=== PATIENT | female | born 1995 | race Asian ===

== ENCOUNTER 2023-12-25 05:43 | Emergency (ER) | payer OTHER, SELFPAY ==
--- NOTE | 2023-12-25 05:48 | ED_ITS ---
HPI - SOB/Dyspnea General Chief Complaint: Upper Respiratory Symptoms Stated Complaint: Dyspnea, SOB Time Seen by Provider: 12/25/23 05:46 Source: patient and RN notes reviewed Mode of arrival: Ambulatory Limitations: no limitations History of Present Illness HPI Narrative: This is a 28-year-old female with no reported medical issues but states she feels short of breath for the past day. She has had some upper respiratory congestion starting at that time, hoarseness, she feels tight in her chest. No nausea or vomiting, no fevers. She has had a cough little bit of clear yellow sputum. No diarrhea constipation, no urinary symptoms. Patient states she is otherwise healthy. She did receive albuterol a couple years ago but does not have a known asthma history. She was not using it regularly throughout her life. Patient states no daily prescriptions. Denies any prior surgeries. Denies any drug allergies. No regular tobacco use, no regular alcohol use, no recreational drugs. Related Data Previous Rx's Medication Instructions Recorded albuterol sulfate 90 mcg/actuation 2 puff inhalation Q4-6H PRN 12/25/23 aerosol inhaler shortness of breath or wheezing #6.7 grams Review of Systems Review of Systems ROS Unobtainable: All systems reviewed & are unremarkable except as noted in HPI and below Patient History Social History Smoking Status: Never smoker Exam Narrative Exam Narrative: GEN: well nourished, well appearing female, alert and oriented x [default value], patient appears to be in mild distress. HEENT: Atraumatic, pupils are equal round reactive to light, extraocular movements are intact, nares are clear, there is no conjunctival pallor. Throat is clear without any exudates, erythema, tonsillar enlargement or uvular deviation, patient is mildly hoarse, she was nasal congestion. HEART: Regular rate and rhythm without murmur, clicks, rubs. LUNGS:Lungs clear to auscultation, no wheezes, rales, crackles, chest moves symmetrically, no tachypnea accessory muscle use. Patient ambulates from triage to the room without any issue. ABD:bowel sounds normal, soft, non-tender, no guarding, rebound, rigidity, no masses noted, no hepatosplenomegaly :No CVA tenderness MSCL: Non-tender, no muscle atrophy, muscles strength 5/5 upper and lower extremities, full range of motion, normal gait NEURO:CN 2-12 intact, sensation normal Initial Vital Signs Initial Vital Signs: Vital Signs Temperature 98.6 F 12/25/23 06:05 Pulse Rate 104 H 12/25/23 06:05 Respiratory Rate 16 12/25/23 06:05 Blood Pressure 136/80 12/25/23 06:05 Pulse Oximetry 98 12/25/23 06:05 Oxygen Delivery Method Room Air 12/25/23 06:05 Course Orders Ordered: Discontinued Medications Dexamethasone (Dexamethasone 10 Mg/Ml Vial) 10 mg PO NOW ONE Stop: 12/25/23 06:30 Last Admin: 12/25/23 06:51 Dose: 10 mg Documented By: ARIELLA Vital Signs Vital signs: Vital Signs - 8 hr 12/25/23 06:05 Temperature 98.6 F Pulse Rate 104 H Respiratory Rate 16 Blood Pressure 136/80 Pulse Oximetry 98 Oxygen Delivery Method Room Air MDM - SOB/Dyspnea Lab Data Labs: Lab Results 12/25/23 Range/Units 06:03 SARS-CoV-2 (PCR) Negative (Negative) Influenza A (RT-PCR) Flu a negative (NEGATIVE) Influenza B (RT-PCR) Flu b negative (NEGATIVE) RSV (PCR) Negative (Negative) Imaging Data Chest x-ray: Radiologist's Impression: Bronchial wall thickening suggesting bronchitis, no evidence of airspace consolidation. No pneumothorax, pleural effusion or congestive changes, cardiovascular silhouette is normal no free air is seen beneath the diaphragm visualized soft tissue and osseous structures are unremarkable. [facility] Narrative Medical decision making narrative: 28-year-old female with benign exam slightly tachycardic upon arrival but with obvious nasal congestion and symptoms consistent with a upper respiratory infection. Lungs are clear, no respiratory distress. She does note some clear productive sputum. Chest x-ray bronchial wall thickening suggesting bronchitis. COVID/influenza/RSV is negative. Patient given single dose of dexamethasone. Not wheezy but we will give albuterol script PRN. Discussed return precautions. Discharge Plan Departure Patient Disposition: Home Clinical Impression: Bronchitis Instructions: DI for Acute Bronchitis Activity Restrictions/Additional Instructions: Follow up in the next week if your symptoms are not improving. You can take [id number] medications for nasal congestion. Can try loratadine 10 mg daily. You were given a dose of oral dexamethasone, this is a steroid that can help with tightness or sensation of wheezing in her chest. If needed you can use albuterol inhaler 2-4 puffs every 4-6 hours as needed. Prescription was sent to [facility] in [facility] if you have new chest pain, increasing difficulty with breathing, fevers, lightheadedness or passing out, persistent vomiting or other new or concerning changes. Prescriptions: New albuterol sulfate 90 mcg/actuation HFA aerosol inhaler 2 puff inhalation Q4-6H PRN (Reason: shortness of breath or wheezing) Qty: 6.7 0RF Referrals: [facility] [Primary Care Provider] - Stand Alone Forms: Patient Portal/API
--- NOTE | 2023-12-25 05:56 | DI.RAD.S_ITS ---
PROCEDURE: XR CHEST 2V INDICATIONS: sob, cough, clear/yellow sputum TECHNIQUE: 2 views of the chest were acquired. COMPARISON: None. FINDINGS: Surgical changes and devices: None. Lungs and pleura: No consolidation. Bronchial rodriguez appear thickened. No pleural effusions or pneumothorax. Mediastinum: Mediastinal contours are normal. Heart size is normal. Bones and chest wall: No suspicious bony abnormalities. Soft tissues appear unremarkable. IMPRESSION: No consolidation. Bronchial rodriguez appear thickened suggesting bronchitis. This report is concordant with the overnight preliminary interpretation. Dictated by: Alexander Dennison M.D. on 12/25/2023 at 7:33 Approved by: Alexander Dennison M.D. on 12/25/2023 at 7:34
[2023-12-25 06:05] VITALS: BP 136/80; PULSE 104; RESP 16; TEMP 37; O2SAT 98; BMI 35.2
[2023-12-25] MEDS: DEXAMETHASONE 10 MG/ML VIAL PO (06:51)
[2023-12-25 06:59] LABS: Influenza A - CEPHEID Flu A NEGATIVE (NEGATIVE); Influenza B - CEPHEID Flu B NEGATIVE (NEGATIVE); Respiratory Syncytial Virus Negative (Negative)
[2023-12-25 07:02] LABS: COVID-19 CEPHEID 4-PLEX PCR Negative (Negative)
[2023-12-25 07:23] VITALS: BP 124/77; PULSE 93; RESP 16; O2SAT 97
== END 2023-12-25 07:25 | disposition home or self-care (01) ==
PROVIDERS: Emergency Provider Emergency Medicine
DX: J20.9 Acute bronchitis, unspecified (principal); R00.0 Tachycardia, unspecified; Z20.822 Contact with and (suspected) exposure to COVID-19
CPT/HCPCS: 0241U; 71046; 99283; J1100